=== PATIENT | female | born 2000 | race Caucasian/White ===

== ENCOUNTER 2024-06-22 18:37 | Emergency (ER) | payer MEDICAID ==
[~2024-06-22] VITALS: Ht 175.3 cm; Wt 82.8 kg
[2024-06-22 18:46] VITALS: TEMP 98.6
[2024-06-22 19:33] LABS: BASOPHILS % (AUTO) 0.2 % (0-1); EOSINOPHILS # (AUTO) 0.1 X10'3 (0-0.9); EOSINOPHILS % (AUTO) 0.6 % (0-6); HEMATOCRIT 31.8 % (35.0-45.0); HEMOGLOBIN 10.7 g/dl (12.0-16.0); LYMPHOCYTES # (AUTO) 2.5 X10'3 (1.1-4.8); LYMPHOCYTES % (AUTO) 29.1 % (21-51); MEAN CORPUSCULAR HEMOGLOBIN 29.2 PG (27.0-31.0); MEAN CORPUSCULAR HGB CONC 33.6 g/dL (33.0-36.5); MEAN CORPUSCULAR VOLUME 86.9 FL (78-98); MEAN PLATELET VOLUME 7.1 FL (7.4-10.4); MONOCYTES # (AUTO) 0.5 X10'3 (0-0.9); MONOCYTES % (AUTO) 6.2 % (2-12); NEUTROPHILS # (AUTO) 5.5 X10'3 (1.8-7.7); NEUTROPHILS % (AUTO) 63.9 % (42-75); PLATELET COUNT 335 X10'3 (140-440); RED BLOOD COUNT 3.66 X10'6 (4.20-5.60); RED CELL DISTRIBUTION WIDTH 13.4 % (11.5-14.5); WHITE BLOOD COUNT 8.5 X10'3 (4.5-11.0)
[2024-06-22 19:36] LABS: BILIRUBIN,URINE NEGATIVE (Neg); CLARITY,URINE CLEAR (Clear); COLOR,URINE YELLOW (Yellow); GLUCOSE, URINE NEGATIVE (Neg); KETONES,URINE NEGATIVE (Neg); LEUKOCYTE ESTERASE ,URINE NEGATIVE (Neg); NITRITES, URINE NEGATIVE (Neg); OCCULT BLOOD,URINE NEGATIVE (Neg); PROTEIN,URINE NEGATIVE (Neg); UROBILINOGEN,URINE 0.2 E.U/dL (0.2-1.0)
[2024-06-22 19:37] LABS: UA COLLECTION TYPE CLN CATCH MIDSTREAM
[2024-06-22 19:48] VITALS: BP 136/80; PULSE 94; RESP 18; O2SAT 98
[2024-06-22 20:00] LABS: ALANINE AMINOTRANSFERASE 38 U/L (12-78); ALBUMIN 2.8 G/DL (3.4-5.0); ALBUMIN/GLOBULIN RATIO 0.8 (1.1-1.5); ALKALINE PHOSPHATASE 59 IU/L (46-116); ANION GAP 4 (8-16); ASPARTATE AMINO TRANSFERASE 32 U/L (10-37); BILIRUBIN,TOTAL 0.3 MG/DL (0.1-1.0); BLOOD UREA NITROGEN 10 MG/DL (7-18); BUN/CREATININE RATIO 21.7 (10.0-20.0); CALCIUM 8.3 MG/DL (8.5-10.1); CHLORIDE 103 MMOL/L (99-107); CREATININE 0.46 MG/DL (0.40-0.90); GLUCOSE 76 MG/DL (70-104); POTASSIUM 3.5 MMOL/L (3.5-5.1); SODIUM 138 MMOL/L (135-145); TOTAL PROTEIN 6.4 G/DL (6.4-8.2); eCRCL 197 ML/MIN; eGFR > 90 ML/MIN
[2024-06-22] MEDS ORDERED: PNV1TABL87 PO (20:52)
== END 2024-06-22 21:00 | disposition home or self-care (01) ==
LOC: ER 18:38
DX: O26.892 Other specified pregnancy related conditions, second trimester (principal); R60.9 Edema, unspecified; Z88.0 Allergy status to penicillin; Z3A.00 Weeks of gestation of pregnancy not specified
CPT/HCPCS: 36415; 80053; 81003; 85025; 93971; 99284